=== PATIENT | male | born 1995 ===

== ENCOUNTER 2018-06-24 22:14 | Emergency (ER) | payer SELFPAY ==
[2018-06-24 22:29] VITALS: TEMP 98.9
--- NOTE | 2018-06-24 22:29 | C.PDOC ---
History Of Present Illness 22 y/o male presents to the ED complaining of left-sided chest pain for 2 days. Pain is described as non-radiating, worse with movement of his L and R arms, feels muscular, and began upon waking up. Patient also notes he was told he has a murmur on employee screening a few months ago, but he has not followed up. Took Tylenol without relief. Denies family history of acute AL. Otherwise he denies any nausea, vomiting, sweats, heavy lifting, trauma, cough, congestion, dizziness, palpitations, or leg pain/swelling. Patient states the pain worsened today prompting him to come in. PMHx is significant only for gastritis. Time Seen by Provider: 06/24/18 22:29 Chief Complaint (Nursing): Chest Pain History Per: Patient History/Exam Limitations: no limitations Onset/Duration Of Symptoms: Days Current Symptoms Are (Timing): Still Present Past Medical History Reviewed: Historical Data, Nursing Documentation, Vital Signs Vital Signs: Last Vital Signs Temp 98.9 F 06/24/18 22:24 Pulse 69 06/24/18 22:24 Resp 18 06/24/18 22:24 BP 119/81 06/24/18 22:24 Pulse Ox 99 06/25/18 00:16 - Medical History PMH: Gastritis Family History: States: No Known Family Hx - Social History Hx Tobacco Use: No Hx Alcohol Use: No Hx Substance Use: Yes (Marijuana) - Immunization History Hx Tetanus Toxoid Vaccination: Yes (2018) Hx Influenza Vaccination: Yes Hx Pneumococcal Vaccination: No Review Of Systems Constitutional: Negative for: Fever, Chills, Sweats Eyes: Negative for: Vision Change ENT: Negative for: Nose Congestion Cardiovascular: Positive for: Chest Pain. Negative for: Palpitations Respiratory: Negative for: Cough, Shortness of Breath, Wheezing Gastrointestinal: Negative for: Nausea, Vomiting, Abdominal Pain Musculoskeletal: Negative for: Arm Pain Skin: Negative for: Rash Neurological: Negative for: Weakness, Numbness, Headache, Dizziness Physical Exam - Physical Exam Appears: Non-toxic, No Acute Distress Skin: Warm, Dry, No Rash (of left upper extremity) Head: Atraumatic, Normacephalic Eye(s): bilateral: Normal Inspection, PERRL, EOMI Oral Mucosa: Moist Neck: Normal, Normal ROM, Trachea Midline, No Midline Cervical Tenderness, No Paracervical Tenderness, Supple, Other (negative kernig's and brudzinskis) Chest: Symmetrical, Tenderness (+ digitally reproducible pain to left chest wall ) Cardiovascular: Rhythm Regular, No Murmur, Other (No rub) Respiratory: No Rales, No Rhonchi, No Wheezing Gastrointestinal/Abdominal: Soft, No Tenderness, No Distention, No Guarding Extremity: Bilateral: Atraumatic, Normal Color And Temperature, Normal ROM Pulses: Left Dorsalis Pedis: Normal, Right Dorsalis Pedis: Normal Neurological/Psych: Oriented x3, Normal Speech Gait: Steady ED Course And Treatment - Laboratory Results Result Diagrams: 06/24/18 23:18 06/24/18 23:18 ECG: Interpreted By Me, Viewed By Me ECG Rhythm: Sinus Rhythm ECG Interpretation: No Acute Changes Rate From EC O2 Sat by Pulse Oximetry: 99 (on RA) Pulse Ox Interpretation: Normal Medical Decision Making Medical Decision Making: Impression: 22 y/o male with complaints of left chest wall pain, denies PMHx of DM, HTN, or high cholesterol, denies family history of AL. Given chest pain upon awakening and reproducability, age, no drug use, no risk factors for AL, Low pretest wells, perc out- likely MSK pain. No GI complaints. No tearing chest pain. No trauma or falls. No murmur on my exam. Plan: --EKG --CMP --CBC --Chest x-ray --Motrin PO --Reassess and dispo Progress/Updates: EKG: NSR at 64 bpm, no STEMI 2345 Labs unremarkable 0015 CXR unremarkable pain improved clear for d/c home Disposition - Disposition Referrals: [facility] at [facility] [Outside] Loli Cardenas MD [Staff Provider] - Disposition: HOME/ ROUTINE Disposition Time: 12:16 Condition: GOOD Additional Instructions: ARON SERNA, thank you for letting us take care of you today. Your provider was Smith Rodriguez and you were treated for CHEST PAINS. The emergency medical care you received today was directed at your acute symptoms. If you were prescribed any medication, please fill it and take as directed. It may take several days for your symptoms to resolve. Return to the Emergency Department if your symptoms worsen, do not improve, or if you have any other problems. Please contact your doctor or call one of the physicians/clinics you have been referred to that are listed on the Patient Visit Information form that is included in your discharge packet. Bring any paperwork you were given at discharge with you along with any medications you are taking to your follow up visit. Our treatment cannot replace ongoing medical care by a primary care provider outside of the emergency department. Thank you for allowing the [facility] team to be part of your care today. If you had an X-Ray or CT scan: A Radiologist will review the ED reading if any change in treatment is needed we will contact you. If you had a blood, urine, or wound culture: It will take several days for the results, if any change in treatment is needed we will contact you. If you had an STI test: It will take 48 hours for the results. Please call after 1 week if you have not heard back. Instructions: Chest Pain That Is Not Caused by the Heart (DC), Costochondritis (DC) Forms: [employer] (Gabonese) - Clinical Impression Clinical Impression: Chest wall pain, Costochondritis - Scribe Statement The provider has reviewed the documentation as recorded by the Scribe (Flavia Bustos) Provider Attestation: All medical record entries made by the Scribe were at my direction and personally dictated by me. I have reviewed the chart and agree that the record accurately reflects my personal performance of the history, physical exam, medical decision making, and the department course for this patient. I have also personally directed, reviewed, and agree with the discharge instructions and disposition.
[2018-06-24 23:29] LABS: BASO # 0.1 K/uL (0.0-0.2); BASO % 0.8 % (0.0-2.0); EOS # 0.1 K/uL (0.0-0.7); LYMPH # 1.4 K/uL (1.0-4.3); LYMPH % 22.7 % (20.0-40.0); MEAN CELL VOLUME 85.9 fL (80.0-94.0); MEAN CORPUSCULAR HGB CONC 34.9 g/dL (33.0-37.0); MEAN PLATELET VOLUME 8.7 fL (7.2-11.7); MONO # 0.7 K/uL (0.0-0.8); MONO % 10.8 % (0.0-10.0); NEUT % 63.7 % (50.0-75.0); RBC 4.33 Mil/uL (4.40-5.90); RED CELL DISTRIBUTION WIDTH 13.1 % (11.5-14.5); WHITE BLOOD COUNT 6.3 K/uL (4.8-10.8)
[2018-06-24 23:34] LABS: ALB/GLOB RATIO 1.7 (1.0-2.1); ALBUMIN 4.4 g/dL (3.5-5.0); ALT/SGPT 31 U/L (21-72); AST/SGOT 17 U/L (17-59); BLOOD UREA NITROGEN 13 mg/dL (9-20); CALCIUM 9.5 mg/dl (8.6-10.4); GFR NON-AFRICAN AMERICAN > 60
[2018-06-25 00:57] VITALS: BP 125/65; PULSE 67; RESP 14; O2SAT 100
--- NOTE | 2018-06-25 08:49 | RAD ---
Date of service: 06/24/2018 HISTORY: cp COMPARISON: No prior. TECHNIQUE: Chest PA and lateral FINDINGS: LUNGS: No active pulmonary disease. PLEURA: No significant pleural effusion identified. No pneumothorax apparent. CARDIOVASCULAR: Normal. OSSEOUS STRUCTURES: No significant abnormalities. VISUALIZED UPPER ABDOMEN: Normal. OTHER FINDINGS: None. IMPRESSION: No acute cardiopulmonary disease appreciated.
--- NOTE | 2018-06-26 06:55 | CARD ---
APPROVED REPORT Date of service: 06/24/2018 EKG Measurement Heart [id number] <Conclusion> Normal sinus rhythm Incomplete right bundle branch block Borderline ECG
== END 2018-06-25 00:57 | disposition home or self-care (01) ==
LOC: SUPCPDRO 22:14 → C.ER 22:14
DX: M94.0 Chondrocostal junction syndrome [Tietze] (principal); R07.89 Other chest pain

== ENCOUNTER 2018-11-04 14:42 | Emergency (ER) | payer OTHER ==
[2018-11-04 14:54] VITALS: BP 157/88; PULSE 94; RESP 20; TEMP 98.2; O2SAT 100
--- NOTE | 2018-11-04 14:56 | C.PDOC ---
History Of Present Illness 23 year old male with no significant PMHx presents complaining of stinging dsyuria for 1.5 weeks. Patient went to STD clinic. He states he was tested for gonorrhea, chlamydia, and HIV and everything returned negative. He stated that he did receive an unspecified finger stick which he states was for HIV. He did not receive and treatment. He has been taking AZO and drinking plenty of fluids for his symptoms with only temporary relief. Patient states his last time having unprotected sex was in August. He has 1 female partner. ROS POSITIVES: Dysuria NEGATIVES: Fever, chills, dizziness, headache, chest pain, palpitations, SOB, abdominal pain, nausea, vomiting, changes in bowel habits, hematuria, increased urinary frequency, incontinent. PMHx: Denies PSHx: Denies Allergies: Shellfish SocialHx: Denies tobacco and EtOH use. Admits to occasional marijuana use. Meds: Denies FamHx: Father - Nephrolithiasis. Mother - "Kidney Problems" PMD: None. Time Seen by Provider: 11/04/18 14:56 Chief Complaint (Nursing): Male Genitourinary History Per: Patient History/Exam Limitations: no limitations Past Medical History Vital Signs: Last Vital Signs Temp 98.2 F 11/04/18 14:52 Pulse 94 H 11/04/18 14:52 Resp 20 11/04/18 14:52 BP 157/88 H 11/04/18 14:52 Pulse Ox 100 11/04/18 14:52 - Medical History PMH: Gastritis Family History: States: Unknown Family Hx - Social History Hx Tobacco Use: No Hx Alcohol Use: No Hx Substance Use: Yes (Marijuana) - Immunization History Hx Tetanus Toxoid Vaccination: Yes (2018) Hx Influenza Vaccination: Yes Hx Pneumococcal Vaccination: No Review Of Systems Except As Marked, All Systems Reviewed And Found Negative. (As per HPI) Physical Exam - Physical Exam Appears: Well, Non-toxic, No Acute Distress Skin: Normal Color, Warm, Dry Head: Atraumatic, Normacephalic Eye(s): bilateral: Normal Inspection Nose: Normal Oral Mucosa: Moist Tongue: Normal Appearing Lips: Normal Appearing Teeth: Normal Dentition Gingiva: Normal Appearing Throat: Normal Neck: Normal Lymphatic: No Adenopathy (No Inguinal adenopathy ), No Inguinal Node Tenderness Cardiovascular: Rhythm Regular Respiratory: Normal Breath Sounds, No Accessory Muscle Use, No Rales, No Rhonchi Gastrointestinal/Abdominal: Normal Exam, Soft, No Tenderness Back: No CVA Tenderness Extremity: No Pedal Edema, Capillary Refill Neurological/Psych: Oriented x3, Normal Speech Gait: Steady ED Course And Treatment O2 Sat by Pulse Oximetry: 100 Medical Decision Making Medical Decision Making: Dysuria UTI vs STD Mgmt; Urinalysis - No WBC, Nitrates or Leuk Es. Urine Culture - PENDING GC/Chlamydia - PENDING Will send patient home with ibuprofen for Dysuria. Patient should follow up at the [facility] clinic to establish care and obtain testing results. Disposition - Disposition Referrals: [facility] at [facility] [Outside] Disposition: HOME/ ROUTINE Disposition Time: 16:55 Condition: GOOD Prescriptions: RX: Ibuprofen [Motrin Tab] 600 mg PO Q6H #28 tab Instructions: Dysuria, Adult (DC) Forms: [employer] (Polish), Work Excuse - Clinical Impression Clinical Impression: Dysuria
[2018-11-04 15:38] LABS: SQUAMOUS EPITHIAL < 1 /hpf (0-5); URINE BILIRUBIN NEGATIVE (NEGATIVE); URINE BLOOD NEGATIVE (NEGATIVE); URINE CLARITY Clear (Clear); URINE COLOR Amber (YELLOW); URINE GLUCOSE (UA) NORMAL (Normal); URINE LEUKOCYTE ESTERASE NEG Leu/uL (Negative); URINE PROTEIN NEGATIVE (NEGATIVE)
== END 2018-11-04 17:21 | disposition home or self-care (01) ==
LOC: C.ER 14:42
DX: R30.0 Dysuria (principal)